=== PATIENT | female | born 1965 | race Caucasian/White ===

== ENCOUNTER 2022-04-18 10:39 | Inpatient (IN) | payer OTHER, SELFPAY ==
--- NOTE | ~2022-04-18 | CT_ITS ---
EXAMINATION: CT head/brain wo IV con CLINICAL INFORMATION: Reason for Exam AMS COMPARISON: None. TECHNIQUE: Contiguous axial imaging was performed from the skull base to vertex without intravenous contrast. Sagittal and coronal reformatted images were obtained. This CT examination was performed using dose optimization techniques as appropriate, variously including the following: * Automated exposure control * Adjustment of mA and/or kV according to patient size (this includes techniques or standardized protocols for targeted exams where dose is matched to indication/reason for exam; i.e. extremities or head) Use of iterative reconstruction technique DLP: 607 mGy-cm FINDINGS: No acute osseous or soft tissue abnormality. The mastoid air cells and visualized portions of the paranasal sinuses are well aerated. There is no evidence of acute intracranial hemorrhage or territorial infarction. No abnormal mass effect or midline shift is seen. Sexton to white matter differentiation is well preserved. No extra-axial fluid collections are identified. No hydrocephalus. Proportional prominence of the ventricles and sulcal spaces is consistent with mild volume loss. CT/CT head/brain wo IV con IMPRESSION: 1. No acute intracranial abnormality.
[2022-04-18 10:58] VITALS: BP 160/113; PULSE 131; RESP 20; TEMP 36.5; O2SAT 96; BMI 28.3
--- OUTSIDE RECORDS SUMMARY | 2022-04-18 11:17 | XMS_ITS | Continuity of Care Document ---
:1965 Author Organization [facility] Address [address] [place] [address]- Care Team Providers Name Role Phone Not on Staff, PCP Primary Care Physician Unavailable Encounter [facility] [place] Date(s): 03/07/21 - 03/09/[address] [address] Encounter Diagnosis Vaginal bleeding (Final) - 03/06/21 Discharge Disposition: A-D/C Home Attending Physician: Rosalina Beach MD Admitting Physician: Rosalina Beach MD Referring Physician: Not on Staff, Referring MD Allergies, Adverse Reactions, Alerts Substance Reaction Severity Status NKA Active Medications docusate-senna 50 mg-187 mg oral tablet 1 tablet, By Mouth, Daily at bedtime, PRN Constipation, # 30 tablet, 0 Refills, Maintenance, 03/09/21 6:35:00 EST, Tablet, [facility] #[id number], Partial fill upon patient request if the prescription is for a schedule II opioid drug., 1 tablet B... Start Date: 03/09/21 Status: Orderedferrous sulfate 325 mg oral tablet 1 tablet = 325 mg, By Mouth, Daily, # 90 tablet, 0 Refills, Maintenance, 03/09/21 6:35:00 EST, Tablet, [facility] #[id number], Partial fill upon patient request if the prescription is for a schedule II opioid drug., 155, cm, 03/09/21 5:57:00 EST,... Start Date: 03/09/21 Status: Orderedibuprofen 600 mg oral tablet 600 mg, 1, tablet, By Mouth, Every 6 hours, # 50 tablet, Refills 0, Tot. Refills 0, Maintenance, 03/09/21 6:35:00 EST, Route to Pharmacy Electronically, [facility] #[id number], Partial fill upon patient request if the prescription is for a schedu... Start Date: 03/09/21 Status: OrderedMiraLax oral powder for reconstitution = 17 Gm, By Mouth, Daily, PRN Constipation, dissolve in water before taking, # 255 Gm, 0 Refills, Acute 03/23/21 0:00:00 EST, 03/09/21 6:36:00 EST, REC Powder, [facility] #[id number], Partial fillupon patient request if the prescription is for a... Start Date: 03/09/21 Stop Date: 03/23/21 Status: OrderedoxyCODONE 5 mg oral tablet 5 mg, 1, tablet, By Mouth, Every 6 hours, PRN, # 18 tablet, Refills 0, Tot. Refills 0, Acute 03/23/21 0:00:00 EST, for pain, 03/09/21 6:35:00 EST, Route to Pharmacy Electronically, [facility]#[id number], Partial fill upon patient request, 155, c... Start Date: 03/09/21 Stop Date: 03/23/21 Status: OrderedTylenol 325 mg oral capsule 2 capsule = 650 mg, By Mouth, Every 4 hours, PRN as needed for pain, # 50 capsule, 0 Refills, Maintenance, 03/09/21 6:35:00 EST, Capsule, [facility] #[id number], Partial fill upon patient request if the prescription is for a schedule II opioid Start Date: 03/09/21 Status: Ordered Problem List Condition Effective Dates Status Health Status Informant Heart murmur(Confirmed) Active Menorrhagia(Confirmed) Active Results Radiology Reports Exam Date Time Procedure Performing Provider Status 03/07/21 12:46 PM Abdomen AP Satish Simmons; Auth (Verifie d) Notes:(Abdomen AP) Reason For Exam: Counts: Sponges/Sharps/Instruments Protocol RESULT: XR Abdomen AP XR Abdomen AP 1 view INDICATION/CLINICAL QUESTION: Reason: Counts: Sponges Sharps Instruments Protocol; Special Instructions: looking for retractor COMPARISON: None FINDINGS: A good portion of the upper abdomen is not included on the examination. Normal bowel gas pattern. No evidence of obstruction. Multiple skin clips midline in location throughout the lower abdomen and pelvis. Scattered soft tissue emphysema in the lower pelvis due to recent surgery. No radiopaque instruments are noted in the visualized portion of the midabdomen and pelvis. No acute bone findings. A wet [place] [id number] on 03/07/2021 at 1:10 PM. IMPRESSION: As above. WSN: [id number] Ordering Physician: Rosalina Beach Dictated By: John Franco MD, V Dictated Date/Time: 03/07/21 1:19 pm Reviewed By: John Franco MD, V Signed By: John Franco MD, V Signed Date/Time: 03/07/21 1:19 pm Transcribed By: MOLLY Transcribed Date/Time: 03/07/21 1:16 pm Vital Signs Most recent to oldest 1 2 3 [Reference Range]: Height 155 cm 155 cm 155 cm (03/09/21 8:53 AM) (03/09/21 5:57 AM) (03/09/21 12:41 AM) Weight 68.75 kg 68.5 kg (03/09/21 5:57 AM) (03/07/21 9:41 AM) Oxygen Saturation [94-100 97 % 93 % 94 % %] (03/09/21 8:53 AM) *L* (03/09/21 12: 41 AM) (03/09/21 5:57 AM) Pulse Rate [55-90 bpm] 102 bpm 62 bpm 86 bpm *H* (03/09/21 5:57 AM) (03/09/21 12: 41 AM) (03/09/21 8:53 AM) Blood Pressure 140/76 mm Hg 131/60 mm Hg 132/66 mm Hg [90-138/55-84 mm Hg] *H* (03/09/21 5:57 AM) ( 1 12:41 AM) (03/09/21 8:53 AM) Respiratory Rate [16-30 18 br/min 16 br/min 20 br/mi n br/min] (03/09/21 8:53 AM) (03/09/21 5:57 AM) (03/09/21 12:41 AM) Temperature [96.8-100.4 98.3 DegF 98.2 DegF 99.7 Deg F DegF] (03/09/21 8:53 AM) (03/09/21 5:57 AM) (03/09/21 12:41 AM) Mode of Delivery (Oxygen) Room air Room air Room a ir (03/09/21 8:53 AM) (03/09/21 5:57 AM) (03/09/21 12:41 AM) Blood pressure sites Arm, left Arm, right Arm, right (03/09/21 8:53 AM) (03/09/21 5:57 AM) (03/09/21 12:41 AM) Temperature Route Oral Oral Oral (03/09/21 8:53 AM) (03/09/21 5:57 AM) (03/09/21 12:41 AM) Dry Weight 69 kg (03/07/21 9:41 AM) Weight Obtained Via Standing scale Patient/family stated (03/09/21 5:57 AM) (03/07/21 9:41 AM) Dry Weight Obtained Via Patient/family stated (03/07/21 9:41 AM) Social History Social History Type Response Smoking Status Never (less than 100 in life time) entered on: 03/07/21 Sex
--- OUTSIDE RECORDS SUMMARY | 2022-04-18 11:17 | XMS_ITS | Continuity of Care Document ---
:1965 Author Organization [facility] [place] Address [address], [address] [place] [address]- Care Team Providers Name Role Phone Rosalina Beach MD Primary Care Physician Encounter 08/07/21 - 08/14/21 [facility] [address], [address] [place] [address]- Attending Physician: Rosalina Beach MD Admitting Physician: Rosalina Beach MD Referring Physician: Rosalina Beach MD Allergies, Adverse Reactions, Alerts No Known Allergies Immunizations Given and Recorded Vaccine Date Status Refusal Reason SARS-CoV-2 (COVID-19) mRNA BNT-162b2 vac 02/26/21 Recorde d SARS-CoV-2 (COVID-19) mRNA BNT-162b2 vac 08/02/20 Recorde d SARS-CoV-2 (COVID-19) mRNA BNT-162b2 vac 07/12/20 Recorde d Medications ferrous sulfate 325 mg oral tablet 1 tablet = 325 mg, By Mouth, Daily, # 90 tablet, 0 Refills, Maintenance, 03/09/21 6:35:00 EST, Tablet, [facility] #[id number], Partial fill upon patient request if the prescription is for a schedule II opioid drug., 155, cm, 03/09/21 5:57:00 EST,... Start Date: 03/09/21 Status: Orderedibuprofen 600 mg oral tablet 600 mg, 1, tablet, By Mouth, Every 6 hours, # 50 tablet, Refills 0, Tot. Refills 0, Maintenance, 03/09/21 6:35:00 EST, Route to Pharmacy Electronically, [facility] #[id number], Partial fill upon patient request if the prescription is for a schedu... 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
--- OUTSIDE RECORDS SUMMARY | 2022-04-18 11:17 | XMS_ITS | Continuity of Care Document ---
:1965 Author Organization [facility] Address [address] [place] [address]- Care Team Providers Name Role Phone Not on Staff, PCP Primary Care Physician Unavailable [place] [facility] 04/08/21 [facility] [address] [place] [address]- Allergies, Adverse Reactions, Alerts No Known Allergies [...] 0 Refills, Maintenance, 03/09/21 6:35:00 EST, Tablet, [facility] #[id number], Partial fill upon patient request if the prescription is for a schedule II opioid drug., 155, cm, 03/09/21 5:57:00 EST,... Start Date: 03/09/21 Status: Orderedibuprofen 600 mg oral tablet 600 mg, 1, tablet, By Mouth, Every 6 hours, # 50 tablet, Refills 0, Tot. Refills 0, Maintenance, 03/09/21 6:35:00 EST, Route to Pharmacy Electronically, [facility] #[id number], Partial fill upon patient request if the prescription is for a schedu... 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
--- OUTSIDE RECORDS SUMMARY | 2022-04-18 11:17 | XMS_ITS | Continuity of Care Document ---
:1965 Author Organization [facility] Address [address] [place] [address]- Care Team Providers Name Role Phone Not on Staff, PCP Primary Care Physician Unavailable Encounter [facility] [place] Date(s): 03/15/21 - 04/14/21 [facility] [address] [place] [address]- Attending Physician: Sarah Camejo Admitting Physician: Sarah Camejo Referring Physician: Sarah Camejo Allergies, Adverse Reactions, Alerts No Known Allergies [...] 0 Refills, Maintenance, 03/09/21 6:35:00 EST, Tablet, [facility] #[id number], Partial fill upon patient request if the prescription is for a schedule II opioid drug., 155, cm, 03/09/21 5:57:00 EST,... Start Date: 03/09/21 Status: Orderedibuprofen 600 mg oral tablet 600 mg, 1, tablet, By Mouth, Every 6 hours, # 50 tablet, Refills 0, Tot. Refills 0, Maintenance, 03/09/21 6:35:00 EST, Route to Pharmacy Electronically, [facility] #[id number], Partial fill upon patient request if the [...]
--- OUTSIDE RECORDS SUMMARY | 2022-04-18 11:17 | XMS_ITS | Continuity of Care Document ---
:1965 Author Organization [facility] Address [address] [place] [address]- Care Team Providers Name Role Phone Not on Staff, PCP Primary Care Physician Unavailable Encounter [facility] [place] Date(s): 03/05/21 - 04/04/21 [facility] [address] [place] [address]- Allergies, Adverse Reactions, Alerts Substance Reaction Severity Status NKA Active Immunizations Given and Recorded Vaccine Date Status Refusal Reason SARS-CoV-2 (COVID-19) mRNA BNT-162b2 vac 02/26/21 Recorde d SARS-CoV-2 (COVID-19) mRNA BNT-162b2 vac 08/02/20 Recorde d SARS-CoV-2 (COVID-19) mRNA BNT-162b2 vac 07/12/20 Recorde d Medications ferrous sulfate 325 mg oral tablet 1 tablet = 325 mg, By Mouth, Daily, # 90 tablet, 0 Refills, Maintenance, 03/09/21 6:35:00 EST, Tablet, [facility] #[id number], Partial fill upon patient request if the prescription is for a schedule II opioid drug., 155, cm, 03/09/21 5:57:00 EST,... Start Date: 03/09/21 Status: Orderedibuprofen 600 mg oral tablet 600 mg, 1, tablet, By Mouth, Every 6 hours, # 50 tablet, Refills 0, Tot. Refills 0, Maintenance, 03/09/21 6:35:00 EST, Route to Pharmacy Electronically, [facility] #[id number], Partial fill upon patient request if the [...]
--- OUTSIDE RECORDS SUMMARY | 2022-04-18 11:17 | XMS_ITS | Continuity of Care Document ---
:1965 Author Organization [facility] Address [address] [place] [address]- Care Team Providers Name Role Phone Not on Staff, PCP Primary Care Physician Unavailable [place] [facility] [place]): 03/05/21 - 04/07/21 [facility] [address] [place], [place] [address] Attending Physician: Molly Costello MD Admitting Physician: Molly Costello MD Referring Physician: Angeline Tamez MD Allergies, Adverse Reactions, Alerts No Known [...] 0 Refills, Maintenance, 03/09/21 6:35:00 EST, Tablet, [facility] #[id number], Partial fill upon patient request if the prescription is for a schedule II opioid drug., 155, cm, 03/09/21 5:57:00 EST,... Start Date: 03/09/21 Status: Orderedibuprofen 600 mg oral tablet 600 mg, 1, tablet, By Mouth, Every 6 hours, # 50 tablet, Refills 0, Tot. Refills 0, Maintenance, 03/09/21 6:35:00 EST, Route to Pharmacy Electronically, [facility] #[id number], Partial fill upon patient request if the [...]
--- OUTSIDE RECORDS SUMMARY | 2022-04-18 11:17 | XMS_ITS | Continuity of Care Document ---
:1965 Author Organization [facility] Address [address] [place] [address]- Care Team Providers Name Role Phone Not on Staff, PCP Primary Care Physician Unavailable [place] [facility] [place] 06[place]/21 [facility] [address] [place], [place] [address] Allergies, Adverse Reactions, Alerts No Known Allergies [...] 0 Refills, Maintenance, 03/09/21 6:35:00 EST, Tablet, [facility] #[id number], Partial fill upon patient request if the prescription is for a schedule II opioid drug., 155, cm, 03/09/21 5:57:00 EST,... Start Date: 03/09/21 Status: Orderedibuprofen 600 mg oral tablet 600 mg, 1, tablet, By Mouth, Every 6 hours, # 50 tablet, Refills 0, Tot. Refills 0, Maintenance, 03/09/21 6:35:00 EST, Route to Pharmacy Electronically, [facility] #[id number], Partial fill upon patient request if the [...]
--- OUTSIDE RECORDS SUMMARY | 2022-04-18 11:17 | XMS_ITS | Continuity of Care Document ---
:1965 Author Organization [facility] [place] [address], [address] [place] [address]- Care Team Providers Name Role Phone Not on Staff, PCP Primary Care Physician Unavailable Encounter 06/04/21 - 06/11/21 [facility] [address], [address] [place] [address]- Attending Physician: Rosalina Beach MD Admitting Physician: [...] 0 Refills, Maintenance, 03/09/21 6:35:00 EST, Tablet, [facility] #[id number], Partial fill upon patient request if the prescription is for a schedule II opioid drug., 155, cm, 03/09/21 5:57:00 EST,... Start Date: 03/09/21 Status: Orderedibuprofen 600 mg oral tablet 600 mg, 1, tablet, By Mouth, Every 6 hours, # 50 tablet, Refills 0, Tot. Refills 0, Maintenance, 03/09/21 6:35:00 EST, Route to Pharmacy Electronically, [facility] #[id number], Partial fill upon patient request if the [...]
[2022-04-18 11:28] LABS: Appearance Urine Clear; Color Urine Yellow; Glucose Urine UA Negative (Negative); Leukocyte Esterase Urine Small (1+) (Negative); Nitrite Urine Negative (Negative); PH 6.5 (5.0-9.0); Specific Gravity - Urine <= 1.005 (1.005-1.025); UMIC TRIGGER UACC YES; Urine Blood Small (1+) (Negative); Urine Ketones Negative (Negative); Urine Protein Negative (Neg-Trace)
[2022-04-18 11:36] LABS: Amphetamine Screen Urine Not Detected (Not Detect); Bacteria Urine None Seen (None Seen); Barbiturates, Urine Not Detected (Not Detect); Benzodiazepines Screen Urine Not Detected (Not Detect); Cannabinoid Screen Urine Not Detected (Not Detect); Cocaine Screen Urine Not Detected (Not Detect); Fentanyl, urine Not Detected (Not Detect); Hyaline Casts Urine 0-2 /LPF (0-2); Opiate Screen Urine Not Detected (Not Detect); Phencyclidine Screen Urine Not Detected (Not Detect); RBC Urine 0-2 /HPF (0-2); Squamous Epithelial Cell Urine 0-2 /HPF (0-2); UACC Culture Trigger YES; WBC Urine 0-5 /HPF (0-5)
[2022-04-18 11:40] LABS: COVID-19 Test Negative (Negative); IDNOW Serial# 16C4AD1C
--- NOTE | 2022-04-18 11:40 | ED_ITS ---
HPI - Psych General Chief Complaint: Psychiatric Symptoms <BLANCA Johnson - Last Filed: 04/18/22 17:15> Stated Complaint: crisis <BLANCA Johnson - Last Filed: 04/18/22 17:15> Time Seen by Provider: 04/18/22 11:40 <BLANCA Johnson - Last Filed: 04/18/22 17:15> Source: patient <BLANCA Johnson - Last Filed: 04/18/22 17:15> Mode of arrival: ambulatory <BLANCA Johnson - Last Filed: 04/18/22 17:15> Limitations: no limitations <BLANCA Johnson Last Filed: 04/18/22 17:15> History of Present Illness HPI Narrative: 56-year-old female with history of situational depression but no treated psychiatric or medical illnesses presents to the ER for evaluation of paranoia, anxiety and panic attacks. She states her partner recently broke up with her on Friday because she was acting paranoid and accusing her of cheating on her. Ov er the weekend she was having increased anxiety, panic attacks, not sleeping well. Her friend brought her to the ER today because she thought she was having a ?nervous breakdown. ? Patient reports being paranoid and thinking ?people are out to get her. ? she denies any visual or auditory hallucinations. She states she is very depressed. She stated friend house last night who told her she was up all night crying. She would not get up and pace in the middle the night, has vague recollection of this. She denies any drugs or alcohol. 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 She denies SI or HI. <BLANCA Johnson - Last Filed: 04/18/22 17:15> MD complaint: feels depressed and anxiety <BLANCA Johnson - Last Filed: 04/18/22 17:15> Onset (ago): day(s) <BLANCA Johnson - Last Filed: 04/18/22 17:15> Duration: getting worse <BLANCA Johnson - Last Filed: 04/18/22 17:15> History of same: No <BLANCA Johnson - Last Filed: 04/18/22 17:15> Relieving factors: none <BLANCA Johnson - Last Filed: 04/18/22 17:15> Exacerbating factors: none <BLANCA Johnson - Last Filed: 04/18/22 17:15> Context: significant life stressor <BLANCA Johnson - Last Filed: 04/18/22 17:15> Associated psychiatric symptoms: depression and racing thoughts <BLANCA Johnson - Last Filed: 17:15> Associated symptoms: confusion and insomnia <BLANCA Johnson - Last Filed: 04/18/22 17:15> Treatments prior to arrival: none <BLANCA Johnson Last Filed: 04/18/22 17:15> Related Data Home Medications: Home Medications Medication Instructions Recorded Confirmed No Known Home Meds 04/18/22 04/18/22 <BLANCA Johnson - Last Filed: 04/18/22 17:15> Allergies/Adverse Reactions: Allergies Allergy/AdvReac Type Severity Reaction Status Date / Time No Known Allergies Allergy Verified 04/18/22 11:10 <BLANCA Johnson Last Filed: 04/18/22 17:15> Review of Systems Review of Systems: Yes all other systems are reviewed and are negative <BLANCA Johnson Last Filed: 04/18/22 17:15> [facility] Social History Social History: Social History Alcohol intake: current Alcohol intake frequency: a few times a week Smoked in Last 30 Days: No Use of substances other than those prescribed or required for medical reasons: No Advance Directives: No Advance Directives Information Provided: Yes Patient : No <BLANCA Johnson - Last Filed: 04/18/22 17:15> Physical Exam Vital Signs: Vital Signs: Last Vital Signs Temp 97.9 F 04/19/22 05:17 Pulse 104 H 04/19/22 05:17 Resp 18 04/19/22 05:17 BP 140/84 H 04/19/22 05:17 Pulse Ox 95 04/19/22 05:17 O2 Del Method 04/19/22 05:17 BMI result Body Mass Index 28.3 <BLANCA Johnson - Last Filed: 04/18/22 17:15> Vital Signs: Last Vital Signs Temp 97.9 F 04/19/22 05:17 Pulse 104 H 04/19/22 05:17 Resp 18 04/19/22 05:17 BP 140/84 H 04/19/22 05:17 Pulse Ox 95 04/19/22 05:17 O2 Del Method 04/19/22 05:17 BMI result Body Mass Index 28.3 <Dilcia Ling MD - Last Filed: 04/19/22 06:40> Appearance: Alert. Oriented X3. No acute distress. Eyes: Pupils equal, round and reactive to light. ENT: Pharynx normal. Neck: Normal inspection. Neck supple. CVS: Normal heart rate and rhythm. Pulses normal. Respiratory: No respiratory distress. Breath sounds normal. Abdomen: Soft and nontender. +BS x4 Skin: Skin warm and dry. Normal skin color. Normal skin turgor. No rashes. Extremities: No lower extremity edema. Neuro/psych: Oriented X 3. No motor deficit. No sensory deficit. CN II-XII intact. Normal speech and cognition. Good insight. Depressed mood <BLANCA Johnson - Last Filed: 04/18/22 17:15> Course Course Course Narrative: 56-year-old female presents to the ER for evaluation of a ?nervous breakdown. ? she reports history of situational anxiety and depression but never has been treated with any medications, she does not have a therapist or psychiatrist. She denies any medical problems. She did get hysterectomy a year ago and thinks that some of this may be hormonally related. She is not suicidal or homicidal. Will have a care team evaluate her. <BLANCA Johnson - Last Filed: 04/18/22 17:15> Reevaluation(s) Reevaluation #1: Patient behavior has been escalating. She was exhibiting more odd behav iors, hollering out and thrashing. Difficult to tell if she is responding to internal stimuli or just talking to herself. She was given dose of Seroquel and Ativan with minimal relief. Psychiatry was contacted, medication recommendations have been made, additional labs have been ordered to well as a CT scan of her head. Thi is all acute presentation with no significant psychaitric history <BLANCA Johnson - Last Filed: 04/18/22 17:15> Reevaluation #2: Continue physician observation, patient with new onset psychosis and will undergo psychiatric consult today and at that time care team will evaluate and make recommendations for disposition. No acute events overnight. <Dilcia Ling MD - Last Filed: 04/19/22 06:40> Time: 06:39 <Dilcia Ling MD - Last Filed: 04/19/22 06:40> Consultations Consultation #1: Psych - [facility] [employer] <BLANCA Johnson - Last Filed: 04/18/22 17:15> Medications Administered Generic Name Dose Route Start Last Admin Trade Name Freq PRN Reason Stop Dose Admin Olanzapine 10 mg 04/18/22 15:45 04/19/22 05:30 Olanzapine Odt 10 Mg Tab.Rapdis TRANSLINGU 10 mg Q6H PRN Administration agitation Discontinued Medications Generic Name Dose Route Start Last Admin Trade Name Freq PRN Reason Stop Dose Admin Hydroxyzine HCl 50 mg 04/18/22 12:57 04/18/22 13:05 Hydroxyzine Hcl 50 Mg Tablet PO 04/18/22 12:58 50 mg ONCE ONE Administration Lorazepam 1 mg 04/18/22 13:52 04/18/22 14:02 Lorazepam 1 Mg Tablet PO 04/18/22 13:53 1 mg ONCE ONE Administration Lorazepam 1 mg 04/18/22 15:13 04/18/22 17:25 Lorazepam 1 Mg Tablet PO 04/18/22 15:14 Not Given ONCE ONE Lorazepam 2 mg 04/18/22 15:42 04/18/22 16:05 Lorazepam 1 Mg Tablet PO 04/18/22 15:43 2 mg ONCE ONE Administration Olanzapine 10 mg 04/18/22 15:44 04/18/22 16:05 Olanzapine Odt 10 Mg Tab.Rapdis TRANSLINGU 04/18/22 15:45 10 mg ONCE ONE Administration Quetiapine Fumarate 25 mg 04/18/22 13:52 04/18/22 14:02 Quetiapine Fumarate 25 Mg Tablet PO 04/18/22 13:53 25 mg ONCE ONE Administration Quetiapine Fumarate 25 mg 04/18/22 15:13 04/18/22 17:25 Quetiapine Fumarate 25 Mg Tablet PO 04/18/22 15:14 Not Given ONCE ONE <BLANCA Johnson - Last Filed: 04/18/22 17:15> Medications Administered Generic Name Dose Route Start Last Admin Trade Name Freq PRN Reason Stop Dose Admin Olanzapine 10 mg 04/18/22 15:45 04/19/22 05:30 Olanzapine Odt 10 Mg Tab.Rapdis TRANSLINGU 10 mg Q6H PRN Administration agitation Discontinued Medications Generic Name Dose Route Start Last Admin Trade Name Freq PRN Reason Stop Dose Admin Hydroxyzine HCl 50 mg 04/18/22 12:57 04/18/22 13:05 Hydroxyzine Hcl 50 Mg Tablet PO 04/18/22 12:58 50 mg ONCE ONE Administration Lorazepam 1 mg 04/18/22 13:52 04/18/22 14:02 Lorazepam 1 Mg Tablet PO 04/18/22 13:53 1 mg ONCE ONE Administration Lorazepam 1 mg 04/18/22 15:13 04/18/22 17:25 Lorazepam 1 Mg Tablet PO 04/18/22 15:14 Not Given ONCE ONE Lorazepam 2 mg 04/18/22 15:42 04/18/22 16:05 Lorazepam 1 Mg Tablet PO 04/18/22 15:43 2 mg ONCE ONE Administration Olanzapine 10 mg 04/18/22 15:44 04/18/22 16:05 Olanzapine Odt 10 Mg Tab.Rapdis TRANSLINGU 04/18/22 15:45 10 mg ONCE ONE Administration Quetiapine Fumarate 25 mg 04/18/22 13:52 04/18/22 14:02 Quetiapine Fumarate 25 Mg Tablet PO 04/18/22 13:53 25 mg ONCE ONE Administration Quetiapine Fumarate 25 mg 04/18/22 15:13 04/18/22 17:25 Quetiapine Fumarate 25 Mg Tablet PO 04/18/22 15:14 Not Given ONCE ONE <Dilcia Ling MD - Last Filed: 04/19/22 06:40> Medical Decision Making Differential Diagnosis Differential Diagnoses: The differential diagnosis associated with the presentation includes <BLANCA Johnson - Last Filed: 04/18/22 17:15> Depression, adjustment disorder, anxiety, panic attacks, polysubstance abuse, insomnia, sleep deprivation, acute psychosis <BLANCA Johnson - Last Filed: 04/18/22 17:15> Admission/Observation Consideration of admission/observation: Escalation of care including admission/observation considered <BLANCA Johnson - Last Filed: 04/18/22 17:15> Unstable, will need to keep in the emergency department, most likely will need require admission to the hospital <BLANCA Johnson - Last Filed: 04/18/22 17:15> Consult Healthcare Provider Management of the patient was discussed with: Behavioral Health Provider <BLANCA Johnson - Last Filed: 04/18/22 17:15> Lab Data MDM Lab Attestation statement: I reviewed the patient's lab results. <BLANCA Johnson - Last Filed: 04/18/22 17:15> Unremarkable metabolic workup Urinalysis with only small leukocyte esterase, no other markers for infection. No symptoms. Will hold off on treatment. Unlikely UTI. <BLANCA Johnson - Last Filed: 04/18/22 17:15> Result Diagrams: 04/18/22 15:49 04/18/22 15:49 <BLANCA Johnson - Last Filed: 04/18/22 17:15> Labs: Lab Results 04/18/22 04/18/22 04/18/22 Range/Units 11:19 11:19 11:19 WBC (4.8-10.8) X10*3/uL RBC (4.20-5.50) X10*6/uL Hgb (12.0-16.0) g/dl Hct (37.0-47.0) % MCV (80.0-98.0) fL MCH (27.0-33.0) pg MCHC (31.0-35.0) g/dl RDW (11.0-16.0) % Plt Count (160-400) X10*3/uL MPV (9.4-12.3) fL Immature Gran % (Auto) (0.0-0.4) % Neut % (Auto) (45-73) % Lymph % (Auto) (20-40) % [place] % (Auto) (2-11) % Eos % (Auto) (0-4) % Baso % (Auto) (0-2) % Lymph # (Auto) (1.2-4.9) X10*3/uL [place] # (Auto) (0.1-1.2) X10*3/uL Eos # (Auto) (0.0-0.4) X10*3/uL Baso # (Auto) (0.0-0.2) X10*3/uL Abs Immat Gran (auto) (0.00-0.03) X10*3/uL Absolute Neuts (auto) (2.0-8.3) x10*3/uL Absolute Nucleated RBC (0.0-0.012) X10*3/uL Nucleated RBC % (auto) (0.0-0.2) /100WBC Sodium (135-145) mmol/L Potassium (3.3-5.1) mmol/L Chloride (96-108) mmol/L Carbon Dioxide (22-29) mmol/L Anion Gap (12-20) BUN (9-16) mg/dL Creatinine (0.5-1.4) mg/dL Estim Creat Clear Calc Estimated GFR Random Glucose (60-115) mg/dL Calcium (8.4-10.2) mg/dL Total Bilirubin (0.0-1.0) mg/dL AST (5-31) U/L ALT (0-31) U/L Alkaline Phosphatase (39-117) U/L C-Reactive Protein (< or = 0.50) mg/dL Total Protein (6.5-8.0) g/dL Albumin (3.5-5.0) g/dL TSH (0.32-4.0) uIU/mL Urine Color Yellow Urine Appearance Clear Urine pH 6.5 (5.0-9.0) Ur Specific [place] <= 1.005 (1.005-1.025) Urine Protein Negative (Neg-Trace) mg/dL Urine Glucose (UA) Negative (Negative) mg/dL Urine Ketones Negative (Negative) mg/dL Urine Blood Small (1+) H (Negative) Urine Nitrite Negative (Negative) Ur Leukocyte Esterase Small (1+) H (Negative) Urine RBC 0-2 (0-2) /HPF Urine WBC 0-5 (0-5) /HPF Ur Squamous Epith Cells 0-2 (0-2) /HPF Urine Bacteria None Seen (None Seen) Hyaline Casts 0-2 (0-2) /LPF Urine Opiates Screen Not Detected (Not Detect) Urine Fentanyl Screen Not Detected (Not Detect) Ur Barbiturates Screen Not Detected (Not Detect) Ur Phencyclidine Scrn Not Detected (Not Detect) Ur Amphetamines Screen Not Detected (Not Detect) U Benzodiazepines Scrn Not Detected (Not Detect) Urine Cocaine Screen Not Detected (Not Detect) U Marijuana (THC) Screen Not Detected (Not Detect) Ethyl Alcohol mg/dL COVID-19 (KHADAR) Negative (Negative) COVID-19 Clin Com See Note 04/18/22 04/18/22 04/18/22 Range/Units 15:49 15:49 15:49 WBC 9.4 (4.8-10.8) X10*3/uL RBC 4.76 (4.20-5.50) X10*6/uL Hgb 13.4 (12.0-16.0) g/dl Hct 38.7 (37.0-47.0) % MCV 81.3 (80.0-98.0) fL MCH 28.2 (27.0-33.0) pg MCHC 34.6 (31.0-35.0) g/dl RDW 13.0 (11.0-16.0) % Plt Count 297 (160-400) X10*3/uL MPV 9.0 L (9.4-12.3) fL Immature Gran % (Auto) 0.2 (0.0-0.4) % Neut % (Auto) 68.3 (45-73) % Lymph % (Auto) 23.5 (20-40) % [place] % (Auto) 5.2 (2-11) % Eos % (Auto) 1.8 (0-4) % Baso % (Auto) 1.0 (0-2) % Lymph # (Auto) 2.2 (1.2-4.9) X10*3/uL [place] # (Auto) 0.5 (0.1-1.2) X10*3/uL Eos # (Auto) 0.2 (0.0-0.4) X10*3/uL Baso # (Auto) 0.1 (0.0-0.2) X10*3/uL Abs Immat Gran (auto) 0.02 (0.00-0.03) X10*3/uL Absolute Neuts (auto) 6.4 (2.0-8.3) x10*3/uL Absolute Nucleated RBC 0.000 (0.0-0.012) X10*3/uL Nucleated RBC % (auto) 0.0 (0.0-0.2) /100WBC Sodium 143 (135-145) mmol/L Potassium 3.5 (3.3-5.1) mmol/L Chloride 108 (96-108) mmol/L Carbon Dioxide 25 (22-29) mmol/L Anion Gap 14 (12-20) BUN 10 (9-16) mg/dL Creatinine 0.91 (0.5-1.4) mg/dL Estim Creat Clear Calc 60.2 Estimated GFR > 60 Random Glucose 130 H (60-115) mg/dL Calcium 9.7 (8.4-10.2) mg/dL Total Bilirubin 0.3 (0.0-1.0) mg/dL AST 34 H (5-31) U/L ALT 30 (0-31) U/L Alkaline Phosphatase 101 (39-117) U/L C-Reactive Protein 0.19 (< or = 0.50) mg/dL Total Protein 6.9 (6.5-8.0) g/dL Albumin 4.3 (3.5-5.0) g/dL TSH 0.97 (0.32-4.0) uIU/mL Urine Color Urine Appearance Urine pH (5.0-9.0) Ur Specific [place] (1.005-1.025) Urine Protein (Neg-Trace) mg/dL Urine Glucose (UA) (Negative) mg/dL Urine Ketones (Negative) mg/dL Urine Blood (Negative) Urine Nitrite (Negative) Ur Leukocyte Esterase (Negative) Urine RBC (0-2) /HPF Urine WBC (0-5) /HPF Ur Squamous Epith Cells (0-2) /HPF Urine Bacteria (None Seen) Hyaline Casts (0-2) /LPF Urine Opiates Screen (Not Detect) Urine Fentanyl Screen (Not Detect) Ur Barbiturates Screen (Not Detect) Ur Phencyclidine Scrn (Not Detect) Ur Amphetamines Screen (Not Detect) U Benzodiazepines Scrn (Not Detect) Urine Cocaine Screen (Not Detect) U Marijuana (THC) Screen (Not Detect) Ethyl Alcohol < 10 mg/dL COVID-19 (KHADAR) (Negative) COVID-19 Clin Com <Stephania Renschler, PA - Last Filed: 04/18/22 17:15> Lab Results 04/18/22 04/18/22 04/18/22 Range/Units 11:19 11:19 11:19 WBC (4.8-10.8) X10*3/uL RBC (4.20-5.50) X10*6/uL Hgb (12.0-16.0) g/dl Hct (37.0-47.0) % MCV (80.0-98.0) fL MCH (27.0-33.0) pg MCHC (31.0-35.0) g/dl RDW (11.0-16.0) % Plt Count (160-400) X10*3/uL MPV (9.4-12.3) fL Immature Gran % (Auto) (0.0-0.4) % Neut % (Auto) (45-73) % Lymph % (Auto) (20-40) % [place] % (Auto) (2-11) % Eos % (Auto) (0-4) % Baso % (Auto) (0-2) % Lymph # (Auto) (1.2-4.9) X10*3/uL [place] # (Auto) (0.1-1.2) X10*3/uL Eos # (Auto) (0.0-0.4) X10*3/uL Baso # (Auto) (0.0-0.2) X10*3/uL Abs Immat Gran (auto) (0.00-0.03) X10*3/uL Absolute Neuts (auto) (2.0-8.3) x10*3/uL Absolute Nucleated RBC (0.0-0.012) X10*3/uL Nucleated RBC % (auto) (0.0-0.2) /100WBC Sodium (135-145) mmol/L Potassium (3.3-5.1) mmol/L Chloride (96-108) mmol/L Carbon Dioxide (22-29) mmol/L Anion Gap (12-20) BUN (9-16) mg/dL Creatinine (0.5-1.4) mg/dL Estim Creat Clear Calc Estimated GFR Random Glucose (60-115) mg/dL Calcium (8.4-10.2) mg/dL Total Bilirubin (0.0-1.0) mg/dL AST (5-31) U/L ALT (0-31) U/L Alkaline Phosphatase (39-117) U/L C-Reactive Protein (< or = 0.50) mg/dL Total Protein (6.5-8.0) g/dL Albumin (3.5-5.0) g/dL TSH (0.32-4.0) uIU/mL Urine Color Yellow Urine Appearance Clear Urine pH 6.5 (5.0-9.0) Ur Specific [place] <= 1.005 (1.005-1.025) Urine Protein Negative (Neg-Trace) mg/dL Urine Glucose (UA) Negative (Negative) mg/dL Urine Ketones Negative (Negative) mg/dL Urine Blood Small (1+) H (Negative) Urine Nitrite Negative (Negative) Ur Leukocyte Esterase Small (1+) H (Negative) Urine RBC 0-2 (0-2) /HPF Urine WBC 0-5 (0-5) /HPF Ur Squamous Epith Cells 0-2 (0-2) /HPF Urine Bacteria None Seen (None Seen) Hyaline Casts 0-2 (0-2) /LPF Urine Opiates Screen Not Detected (Not Detect) Urine Fentanyl Screen Not Detected (Not Detect) Ur Barbiturates Screen Not Detected (Not Detect) Ur Phencyclidine Scrn Not Detected (Not Detect) Ur Amphetamines Screen Not Detected (Not Detect) U Benzodiazepines Scrn Not Detected (Not Detect) Urine Cocaine Screen Not Detected (Not Detect) U Marijuana (THC) Screen Not Detected (Not Detect) Ethyl Alcohol mg/dL COVID-19 (KHADAR) Negative (Negative) COVID-19 Clin Com See Note 04/18/22 04/18/22 04/18/22 Range/Units 15:49 15:49 15:49 WBC 9.4 (4.8-10.8) X10*3/uL RBC 4.76 (4.20-5.50) X10*6/uL Hgb 13.4 (12.0-16.0) g/dl Hct 38.7 (37.0-47.0) % MCV 81.3 (80.0-98.0) fL MCH 28.2 (27.0-33.0) pg MCHC 34.6 (31.0-35.0) g/dl RDW 13.0 (11.0-16.0) % Plt Count 297 (160-400) X10*3/uL MPV 9.0 L (9.4-12.3) fL Immature Gran % (Auto) 0.2 (0.0-0.4) % Neut % (Auto) 68.3 (45-73) % Lymph % (Auto) 23.5 (20-40) % [place] % (Auto) 5.2 (2-11) % Eos % (Auto) 1.8 (0-4) % Baso % (Auto) 1.0 (0-2) % Lymph # (Auto) 2.2 (1.2-4.9) X10*3/uL [place] # (Auto) 0.5 (0.1-1.2) X10*3/uL Eos # (Auto) 0.2 (0.0-0.4) X10*3/uL Baso # (Auto) 0.1 (0.0-0.2) X10*3/uL Abs Immat Gran (auto) 0.02 (0.00-0.03) X10*3/uL Absolute Neuts (auto) 6.4 (2.0-8.3) x10*3/uL Absolute Nucleated RBC 0.000 (0.0-0.012) X10*3/uL Nucleated RBC % (auto) 0.0 (0.0-0.2) /100WBC Sodium 143 (135-145) mmol/L Potassium 3.5 (3.3-5.1) mmol/L Chloride 108 (96-108) mmol/L Carbon Dioxide 25 (22-29) mmol/L Anion Gap 14 (12-20) BUN 10 (9-16) mg/dL Creatinine 0.91 (0.5-1.4) mg/dL Estim Creat Clear Calc 60.2 Estimated GFR > 60 Random Glucose 130 H (60-115) mg/dL Calcium 9.7 (8.4-10.2) mg/dL Total Bilirubin 0.3 (0.0-1.0) mg/dL AST 34 H (5-31) U/L ALT 30 (0-31) U/L Alkaline Phosphatase 101 (39-117) U/L C-Reactive Protein 0.19 (< or = 0.50) mg/dL Total Protein 6.9 (6.5-8.0) g/dL Albumin 4.3 (3.5-5.0) g/dL TSH 0.97 (0.32-4.0) uIU/mL Urine Color Urine Appearance Urine pH (5.0-9.0) Ur Specific [place] (1.005-1.025) Urine Protein (Neg-Trace) mg/dL Urine Glucose (UA) (Negative) mg/dL Urine Ketones (Negative) mg/dL Urine Blood (Negative) Urine Nitrite (Negative) Ur Leukocyte Esterase (Negative) Urine RBC (0-2) /HPF Urine WBC (0-5) /HPF Ur Squamous Epith Cells (0-2) /HPF Urine Bacteria (None Seen) Hyaline Casts (0-2) /LPF Urine Opiates Screen (Not Detect) Urine Fentanyl Screen (Not Detect) Ur Barbiturates Screen (Not Detect) Ur Phencyclidine Scrn (Not Detect) Ur Amphetamines Screen (Not Detect) U Benzodiazepines Scrn (Not Detect) Urine Cocaine Screen (Not Detect) U Marijuana (THC) Screen (Not Detect) Ethyl Alcohol < 10 mg/dL COVID-19 (KHADAR) (Negative) COVID-19 Clin Com <Dilcia Ling MD - Last Filed: 04/19/22 06:40> Prescription Management I considered prescription management with: Other <BLANCA Johnson - Last Filed: 04/18/22 17:15> Antipsychotics and benzodiazepines ordered for mood and behaviors. <BLANCA Johnson - Last Filed: 04/18/22 17:15> Critical Care Time Critical Care Time Critical Care Time: No <BLANCA Johnson - Last Filed: 04/18/22 17:15> Discharge Plan Discharge Clinical Impression: Unspecified psychosis <BLANCA Johnson - Last Filed: 04/18/22 17:15> Patient Disposition: Still a Patient <BLANCA Johnson - Last Filed: 04/18/22 17:15> Prescriptions: No Action No Known Home Meds <BLANCA Johnson - Last Filed: 04/18/22 17:15> Referrals: [facility] [Other] PCP [Other] (Follow up with your PCP and discuss being started on a medication ) <BLANCA Johnson - Last Filed: 04/18/22 17:15> Interventions: [place]-Suicide Risk Severity Scale Last Done: 04/19/22 05:11 <BLANCA Johnson - Last Filed: 04/18/22 17:15>
--- NOTE | 2022-04-18 12:11 | PC.NURSE ---
pt currently meeting with CARE team. pt is alert and oriented x4. she rpeorts increased paranoia over the past couple of weeks leading to a break up between her and her partner. pt reports since the split she has now been experiencing severe anxiety and panic attacks. pt reports she has been slapping herself in the face as a way of grounding herself. pt denies SI/HI at this time. Provider aware of abnormal vitals, elevated BP and HR. will re-check
[2022-04-18 12:17] VITALS: BP 146/89; PULSE 69; RESP 16; TEMP 36.8; O2SAT 95
--- NOTE | 2022-04-18 12:39 | PC.NURSE ---
Maria D (friend - home)
[2022-04-18] MEDS: hydrOXYzine HCL 50 MG TABLET PO (13:05)
--- NOTE | 2022-04-18 13:07 | PC.NURSE ---
pt in room by herself, heard saying stop talking to me. ? responding to internal stimuli vs self dialoguing, pt did deny AVH upon arrival but also admitted to poor sleep x1 week. medicated with Atarax per MAY. pt also frequently leaving her room and will wet her hands in the sink outside her room then immediately return to her room, does not appear to have intent with handwashing.
[2022-04-18] MEDS: QUEtiapine Fumarate 25 MG TABLET PO (14:02)
[2022-04-18] MEDS: LORazepam 1 MG TABLET PO (14:02)
--- NOTE | 2022-04-18 14:44 | PC.NURSE ---
pt increasingly becoming erratic, hitting her hands on her mattress repeatedly, screaming out no repeatedly. pt will get up out of bed, walk to the other side of her bed, scream no! then get in bed from that side. pts has moments of rest where she appears to be sleeping, then will suddenly start hitting her hands on the bed again and yelling out. When asked about her behavior pt reported its been a really shitty week .
--- NOTE | 2022-04-18 14:46 | PC.NURSE ---
will hold on lab work at this time until pt is in better behavioral control and not at risk to injure staff from striking out.
--- NOTE | 2022-04-18 15:10 | PC.NURSE ---
when asked about the screaming on a re-attempt pt was very disheveled, did not appear in behavioral control, grabbing her face and head, shaking herself and reported they're nightmares .
--- NOTE | 2022-04-18 15:47 | PM.PSYCN ---
History of Present Illness Date of Service: 04/18/2022 Chief Complaint: crisis Reason for Consult: AMS Discussed with referring provider: Yes Sources of Information: patient interviewed, chart reviewed and crisis/core team assessment reviewed HPI Narrative: Ms. Stanley was brought to [facility] ED due to presenting with AH, delusions, confusion since last Friday. No prior psych Hx- per friend. Recent stressors include breaking up with GF but unclear if this was product of already AMS or prior to. Most labs pending at this point including CBC, CMP, TSH, head CT, CRP. Utox is negative. BAL pending. VS BP 146/89, HR 69. Pt seen in her room. Pt states she is seeing monsters, states, but in my dreams, which RN pointed out she is awake, not sleeping. Pt tells this appeals writer that she feels something not right. However, appears to have difficulty describing what it is. Pt reports she has not slept in days. Pt reports feeling anxious. She reported earlier feeling like someone was following her. She denies substance use. She reports she is not on any medications. She is oriented to place, month, date, and year. Her attention is poor. She then started crying when asked unable to describe. She denies any physical pain. Medical Evaluation Reviewed: Yes Diagnostics Vital Signs (24Hr): Vital Signs - 24 hr 04/18/22 10:58 04/18/22 12:17 Temperature 97.7 F 98.2 F Pulse Rate 131 H 69 Respiratory Rate 20 16 Blood Pressure 160/113 H 146/89 H Pulse Oximetry 96 95 Oxygen Delivery Method Room Air Room Air BMI result Body Mass Index 28.3 Labs Labs: Laboratory Results - last 48 hr 04/18/22 04/18/22 04/18/22 11:19 11:19 11:19 Urine Color Yellow Urine Appearance Clear Urine pH 6.5 Ur Specific [place] <= 1.005 Urine Protein Negative Urine Glucose (UA) Negative Urine Ketones Negative Urine Blood Small (1+) H Urine Nitrite Negative Ur Leukocyte Esterase Small (1+) H Urine RBC 0-2 Urine WBC 0-5 Ur Squamous Epith Cells 0-2 Urine Bacteria None Seen Hyaline Casts 0-2 Urine Opiates Screen Not Detected Urine Fentanyl Screen Not Detected Ur Barbiturates Screen Not Detected Ur Phencyclidine Scrn Not Detected Ur Amphetamines Screen Not Detected U Benzodiazepines Scrn Not Detected Urine Cocaine Screen Not Detected U Marijuana (THC) Screen Not Detected COVID-19 (KHADAR) Negative COVID-19 Clin Com See Note Mental Status Exam Mental Status Exam Narrative: Appearance: wearing hospital gown, restless Behavior: cooperative to some extend but due to poor attention engagement in interview is fair. Psychomotor: intermittent episodes of agitation without clear trigger Speech: mumbles at times, some delayed in response, spontaneous TP: some periods of being able to respond to most questions fairly appropriate but then derailment TC: feeling anxious, talking to herself, some insight that something is wrong with her Mood: anxious Affect: distress, restless SI: denies HI: denies AH/VH: reports AH, when asked content, unable to explain, seeing monsters Delusions: paranoid delusions Insight/judgment: impaired x 2. Memory/cog: alert, oriented to month, date, year, Medications Medications Current Medications Olanzapine (Olanzapine Odt 10 Mg Tab.Rapdis) 10 mg TRANSLINGU Q6H PRN PRN Reason: agitation Allergies Allergies Allergy/AdvReac Type Severity Reaction Status Date / Time No Known Allergies Allergy Verified 04/18/22 11:10 Assessment & Plan Assessment & Plan (1) Unspecified psychosis: Status: Acute Code(s): F29 - Unspecified psychosis not due to a substance or known physiological condition Assessment and Plan: Ms. Stanley is a 56 year-old woman with no prior psych hx brought to [facility] ED with new onset psychosis, confusion and paranoid since last Friday. Information gathered from friend who spoke with care team and confirmed acute onset and fact that pt has no prior hx. PLAN 1. complete medical work up including head ct crp, cbc, cmp, TSH, RPR, HIV, EKG 2. agitation/psychosis management- olanzapine 10mg op q6h, may also give ativan PRN. monitor EKG Qtc, maintain K>4, Mg>2. Total time managing care of this patient today ____ minutes.
[2022-04-18 15:55] LABS: MANUAL DIFF FLAG NO
[2022-04-18 16:00] LABS: Basophils Absolute Auto 0.1 X10*3/uL (0.0-0.2); Eosinophils Absolute Auto 0.2 X10*3/uL (0.0-0.4); Eosinophils Percent Auto 1.8 % (0-4); Hematocrit 38.7 % (37.0-47.0); Hemoglobin 13.4 g/dl (12.0-16.0); Imm Gran Abs Auto 0.02 X10*3/uL (0.00-0.03); Imm Gran Pct Auto 0.2 % (0.0-0.4); Lymphocytes Absolute Auto 2.2 X10*3/uL (1.2-4.9); Lymphocytes Percent Auto 23.5 % (20-40); Mean Corpuscular HGB Conc 34.6 g/dl (31.0-35.0); Mean Corpuscular Hemoglobin 28.2 pg (27.0-33.0); Mean Corpuscular Volume 81.3 fL (80.0-98.0); Monocytes Absolute Auto 0.5 X10*3/uL (0.1-1.2); Monocytes Percent Auto 5.2 % (2-11); Neutrophils Absolute Auto 6.4 x10*3/uL (2.0-8.3); Neutrophils Percent Auto 68.3 % (45-73); Platelet Count 297 X10*3/uL (160-400); Red Blood Count 4.76 X10*6/uL (4.20-5.50); White Blood Count 9.4 X10*3/uL (4.8-10.8)
[2022-04-18] MEDS: OLANZapine ODT 10 MG TAB.RAPDIS TRANSLINGU (16:05)
[2022-04-18] MEDS: LORazepam 1 MG TABLET 2 MG PO (16:05)
[2022-04-18 16:16] LABS: Ethanol < 10 mg/dL
[2022-04-18 16:18] LABS: Alanine Aminotransferase 30 U/L (0-31); Albumin Level 4.3 g/dL (3.5-5.0); Alkaline Phosphatase 101 U/L (39-117); Anion Gap 14 (12-20); Aspartate Amino Transferase 34 U/L (5-31); Bilirubin Total 0.3 mg/dL (0.0-1.0); Blood Urea Nitrogen 10 mg/dL (9-16); Calcium 9.7 mg/dL (8.4-10.2); Carbon Dioxide 25 mmol/L (22-29); Chloride 108 mmol/L (96-108); Creatinine Clr Calc Pharmacy 60.2; Estimated Glomerular Filt Rate > 60; Glucose Random 130 mg/dL (60-115); Potassium 3.5 mmol/L (3.3-5.1); Sodium 143 mmol/L (135-145); Total Protein 6.9 g/dL (6.5-8.0)
[2022-04-18 16:56] LABS: C Reactive Protein 0.19 mg/dL (< or = 0.50)
[2022-04-18 17:12] LABS: TSH reflex Free T4 0.97 uIU/mL (0.32-4.0)
--- NOTE | 2022-04-18 18:19 | PC.NURSE ---
Late entry: At approx 1530 provider Dominga notified pt could use a psychiatric provider to assess and suggest additional medications. Pt was observed to be shrieking periodically in her room, when this RN in to talk to her, she was responding with eyes closed that she was having nightmares, and hearing creatures . 2mg ativan and 10mg SL Zyprexa admin with positive effect. Pt calmed after approximately 40 minutes, room changed to [facility] to reduce stimulation, and pt was able to fall asleep. Pt briefly awoke around [address], appeared very drowsy at this time. Pt able to go to CT and back with no incident. Pt is currently sleeping at this time resp reg and even. NAD.
--- NOTE | 2022-04-19 05:14 | PC.NURSE ---
Patient slept through the night, no distress observed/reported, patient just woke up, compliant with Vital Signs assessment, HR 104, coherent, med rec completed/currently not on any home medication, head CT unremarkable, behavior non concerning at this time, care team disposition pending psych consult, will continue to monitor.
[2022-04-19 05:17] VITALS: BP 140/84; PULSE 104; RESP 18; TEMP 36.6; O2SAT 95
[2022-04-19] MEDS: OLANZapine ODT 10 MG TAB.RAPDIS TRANSLINGU (05:30)
--- NOTE | 2022-04-19 05:34 | PC.NURSE ---
Patient appears restless, HR 104, offered Olanzapine 10 mg Zydis/accepted, pending effect, will continue to monitor.
--- NOTE | 2022-04-19 07:09 | PC.NURSE ---
Pt sleeping at this time, resp reg and even. NAD.
--- NOTE | 2022-04-19 12:03 | ECG_ITS ---
Test Reason : MED CLEARANCE Blood Pressure : / mmHG Vent. Rate : 086 BPM Atrial Rate : 086 BPM P-R Int : 160 ms QRS Dur : 080 ms QT Int : 340 ms P-R-T Axes : 055 011 029 degrees QTc Int : 406 ms Normal sinus rhythm Normal ECG No previous ECGs available Referred By: Dilcia Ling Electronically Signed By:MAVERICK MACARIO
[2022-04-19 15:24] VITALS: BP 141/84; PULSE 95; RESP 17; TEMP 36.4; O2SAT 98
[2022-04-19 16:50] VITALS: BP 154/95; PULSE 103; RESP 14; TEMP 37.2; O2SAT 99
--- NOTE | 2022-04-19 17:03 | PC.NURSE ---
PT is a 56 year old south sudanese speaking female that arrived on this unit at 16:00 via wheelchair from the [facility]. Patient's legal status is conditional voluntary and she was placed on 15 minute safety checks. PT self presented to the [facility] with concerns of paranoia, anxiety and panic attacks following a recent break up with her partner. PT reports severe insomnia since the break up. PT currently denies any AH although it is in her initial assessment. PT has no hx of mental health concerns nor does any of her immediate family. Trauma hx includes severe bullying as a child, no hx of sexual or physical abuse. 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 PT is visibly anxious, intermittently tearful., but cooperative for the admission process. Denies SI/HI, AH/VH. VS stable, respirations even and unlabored. PT states her goal is to start meds to feel better, set up therapy services and to be discharged home. PT refuses the seasonal flu vaccine and is a non smoker. PT oriented to unit, all policies explained, currently feels safe at this time.
[2022-04-20 06:00] VITALS: BP 168/100; PULSE 98; RESP 16; TEMP 36.8; O2SAT 99
[2022-04-20 08:45] LABS: Ammonia 25 umol/L (13-55)
[2022-04-20 08:50] LABS: Cholesterol 174 mg/dL; Estimated Average Glucose 108 mg/dL; HDL Cholesterol 77 mg/dL; Hemoglobin A1c % 5.4 %; LDL Cholesterol Calculated 89 mg/dl; Triglycerides 43 mg/dL
--- NOTE | 2022-04-20 10:45 | PC.NURSE ---
Pt. signed a 3 day notice 04/20, up on Monday 04/24
--- NOTE | 2022-04-20 12:30 | HO.PSYADMNOT ---
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 Patient reports she had a break up which precipitated insomnia and increase in her depression. According to the psychiatry consultation performed in the ED by Dominga Wells APRN: Ms. Stanley was brought to [facility] ED due to presenting with AH, delusions, confusion since last Friday. No prior psych Hx- per friend. Recent stressors include breaking up with GF but unclear if this was product of already AMS or prior to. Most labs pending at this point including CBC, CMP, TSH, head CT, CRP. Utox is negative. BAL pending. VS BP 146/89, HR 69. Pt seen in her room. Pt states she is seeing monsters, states, but in my dreams, which RN pointed out she is awake, not sleeping. Pt tells this film writer that she feels something not right. However, appears to have difficulty describing what it is. Pt reports she has not slept in days. Pt reports feeling anxious. She reported earlier feeling like someone was following her. She denies substance use. She reports she is not on any medications. She is oriented to place, month, date, and year. Her attention is poor. She then started crying when asked unable to describe. She denies any physical pain. Patient reports she believes her actions in the ED were precipitated by her receiving medications that made her act psychotic. She has been calm since arriving on the psychiatric unit and says she was brought to get therapy and wasn't expecting she would be admitted. She says she has a history of being depressed and is an anxious introverted person. She acknowledges she overreacted to her suspicions of her partner cheating on her and I should have been more patient. She reported she thought people were whispering about her and that happened because of sleep deprivation. While in the ED she was acting disorganized. She was pacing, appeared to be talking to herself and responding to internal stimuli, putting her hands in the sink water then returning to her room and slapping the bed before laying in it. Labs and head CT were non-revealing. Today, she appeared calm, she slept last night, she appeared organized, she denied SI or AVH. She reports history of being an introverted person and I overthink things. She reports anxiety especially going to doctors because she worries they may find an illness, specifically cancer, due to her strong family history. She then says and they did find it when I went . (patient had a hysterectomy after being diagnosed with uterine cancer.) Reports depressed mood, guilt, insomnia, denies SI. (In the crisis report per her friend she was saying she wishes she weren't around after the break up.) Denies manic episodes in the past. She is agreeable to a trial of an antidepressant. Past Psychiatric History: Denies any treatment or inpatient hospitalizations. Medical Evaluation Reviewed: Yes PMFSH Narrative: Uterine cancer s/p hysterectomy Family History: Strong family history of cancer multiple family members. Brother: possible alcoholism. Sister: Eating disorder Social History: Single. Never . No children. 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 Lives with pets. Grew up in [place]. Longest relationship was 8 years ended in 2001. Substance History: None Trauma History: Trauma of being severely bullied in school. Denies other trauma. Diagnostics Vital Signs (24Hr): Vital Signs - 24 hr 04/20/22 06:00 Temperature 98.2 F Pulse Rate 98 Respiratory Rate 16 Blood Pressure 168/100 H Pulse Oximetry 99 Oxygen Delivery Method Room Air BMI result Body Mass Index 28.3 Labs 04/18/22 15:49 04/18/22 15:49 Labs: Laboratory Results - last 48 hr 04/20/22 04/20/22 04/20/22 08:04 08:04 08:26 Estimat Average Glucose 108 Hemoglobin A1c % 5.4 Ammonia 25 Triglycerides 43 Cholesterol 174 LDL Cholesterol, Calc 89 HDL Cholesterol 77 Imaging Radiology Impressions: ITS Impressions Head CT 04/18/22 17:56 IMPRESSION: 1. No acute intracranial abnormality. Meds/Allergies Meds Home Medications Medication Instructions Recorded Confirmed Type No Known Home Meds 04/18/22 04/18/22 History Allergies Allergies Allergy/AdvReac Type Severity Reaction Status Date / Time No Known Allergies Allergy Verified 04/18/22 11:10 Mental Status Exam Mental Status Exam Patient Appearance: Appropriate Patient Orientation: Person, Place, Time and Situation Level of Consciousness: Awake and Appropriate Patient Behavior: Appropriate, Timid, Anxious and Good Eye Contact Mood Description: Constricted, Depressed, Anxious, Sad and Nervous Affect Description: Anxious, Sad and Nervous Patient Cognition Impaired: No Ability to Follow Directions: Excellent Speech Pattern: Clear, Spontaneous Speech and Coherent Memory Description: Intact and Normal for Patient Hallucinations: None Delusions: Paranoid Ideation Thought Process: Intact Thought Content: positive for Intact Depressive Symptoms: Increased Anxiety, Insomnia, Difficulty Sleeping, Loss of Int. 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 Patient reports she had a break up which precipitated insomnia and increase in her depression. She may have had an acute brief psychotic episode following the break up. Based on her presentation today more likely is an adjustment disorder with depression and anxiety, precipitating acute insomnia with behavioral disturbances. May have had a delirious side effect due to seroquel/ativan. She admits to chronic anxiety and introversion and agrees to a trial of an antidepressant. Plan - Admit to for monitoring of symptoms, diagnostic clarification and stabilization. - Encourage milieu and group therapy - Start Lexapro 5 mg daily - Collaterals. - Disposition planning. - PHP could be an option depending on symptom stability and response to Lexapro. Patient educated on: diagnosis and medication risk/benefits Reason for continued inpatient stay Substantial Risk for: inability to function and rapid decompensation Statement Statement: I have reviewed the history and physical and performed a pertinent examination on my patient. No changes have occurred unless specified. If the History and Physical was not performed prior to admission, the Hospitalist's service will be consulted for completing the admission physical. Time Spent With Patient Time: Total time managing care of this patient today ____ minutes.
[2022-04-20 18:00] VITALS: BP 158/83; PULSE 103; TEMP 36.8; O2SAT 98
[2022-04-21 08:00] VITALS: BP 158/84; PULSE 82; RESP 16; TEMP 36.8; O2SAT 99
--- NOTE | 2022-04-21 14:40 | P.PNPSI_ITS ---
Subjective Subjective Date of Service: 04/21/22 Reason For Visit: psychotic symptons Interim History: Patient seen and discussed. Patient was somewhat more irritable and less agreeable than yesterday. Patient continues to deny paranoia or perceptual disturbances. Says she wasn't paranoid regarding her partner cheating on her but rather suspicious Patient refused Lexapro as we had discussed yesterday and she agreed to take it. She says I can't have my mind altered. I would like to get therapy and no medications. Patient was educated regarding effects and side effects of AD medicaitons. She continues to refuse. 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 Psychomotor: intermittent episodes of agitation without clear trigger Speech: mumbles at times, some delayed in response, spontaneous TP: some periods of being able to respond to most questions fairly appropriate but then derailment TC: feeling anxious, talking to herself, some insight that something is wrong with her Mood: anxious Affect: distress, restless, irritable SI: denies HI: denies AH/VH: reports AH, when asked content, unable to explain, seeing monsters Delusions: paranoid delusions Insight/judgment: impaired x 2. Memory/cog: alert, oriented to month, date, year, Patient Appearance: Appropriate Patient Orientation: Person, Place, Time and Situation Level of Consciousness: Awake and Appropriate Patient Behavior: Appropriate, Timid, Anxious and Good Eye Contact Mood Description: Constricted, Depressed, Anxious, Sad and Nervous Affect Description: Anxious, Sad and Nervous Patient Cognition Impaired: No Ability to Follow Directions: Excellent Speech Pattern: Clear, Spontaneous Speech and Coherent Memory Description: Intact and Normal for Patient Diagnostics Vital Signs (24Hr): Vital Signs - 24 hr 04/21/22 08:00 04/21/22 18:00 Temperature 98.2 F 97.2 F Pulse Rate 82 95 Respiratory Rate 16 Blood Pressure 158/84 H 145/85 H Pulse Oximetry 99 100 Oxygen Delivery Method Room Air Room Air BMI result Body Mass Index 28.3 Labs 04/18/22 15:49 04/18/22 15:49 Labs: Laboratory Results - last 48 hr 04/20/22 04/20/22 04/20/22 08:04 08:04 08:26 Estimat Average Glucose 108 Hemoglobin A1c % 5.4 Ammonia 25 Triglycerides 43 Cholesterol 174 LDL Cholesterol, Calc 89 HDL Cholesterol 77 Imaging Radiology Impressions: ITS Impressions Head CT 04/18/22 17:56 IMPRESSION: 1. No acute intracranial abnormality. Medications Medications Current Medications Acetaminophen (Acetaminophen 325 Mg Tablet) 650 mg PO Q6H PRN PRN Reason: Headache/Pain Mild Scale (1-3) Al Hydroxide/Mg Hydroxide (Magnesium Hydrox/Alum Hydrox 30 Ml Oral.Susp) 30 ml PO Q6H PRN PRN Reason: Heartburn/Nausea Hydroxyzine HCl (Hydroxyzine Hcl 25 Mg Tablet) 25 mg PO Q6H PRN PRN Reason: Anxiety Lorazepam (Lorazepam 1 Mg Tablet) 1 mg PO Q4H PRN PRN Reason: agitation Magnesium Hydroxide (Milk Of Magnesia 30 Ml Oral.Susp) 30 ml PO DAILY PRN PRN Reason: Constipation Nicotine Polacrilex (Nicotine Polacrilex 2 Mg Gum) 4 mg BUCCAL Q2H PRN PRN Reason: Nicotine Cravings Olanzapine (Olanzapine Odt 10 Mg Tab.Rapdis) 10 mg TRANSLINGU Q6H PRN PRN Reason: agitation Last Admin: 04/19/22 05:30 Dose: 10 mg Trazodone HCl (Trazodone Hcl 50 Mg Tablet) 50 mg PO BEDTIME PRN PRN Reason: Insomnia Allergies Allergies Allergy/AdvReac Type Severity Reaction Status Date / Time No Known Allergies Allergy Verified 04/18/22 11:10 Assessment & Plan Assessment & Plan (1) Adjustment disorder with mixed anxiety and depressed mood: Status: Acute Code(s): F43.23 - Adjustment disorder with mixed anxiety and depressed mood (2) Generalized anxiety disorder: Status: Acute Code(s): F41.1 - Generalized anxiety disorder (3) Depression, unspecified: Status: Acute Code(s): F32.A - Depression, unspecified Assessment and Plan: This is reportedly the first psychiatric admission for this 56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 Patient reports she had a break up which precipitated insomnia and increase in her depression. She may have had an acute brief psychotic episode following the break up. Based on her presentation today more likely is an adjustment disorder with depression and anxiety, precipitating acute insomnia with behavioral disturbances. May have had a delirious side effect due to seroquel/ativan. She admits to chronic anxiety and introversion and agrees to a trial of an antid epressant. Plan - Admit to for monitoring of symptoms, diagnostic clarification and stabilization. - Encourage milieu and group therapy - Start Lexapro 5 mg daily - Collaterals. - Disposition planning. - PHP could be an option depending on symptom stability and response to Lexapro. 04/21: More irritable today. Refused Lexapro. Continue tx planning. Refuses PHP as an option. Reason for contiued inpatient stay Substantial Risk for: harm to self and inability to function Time Spent With Patient Time: Total time managing care of this patient today ____ minutes.
[2022-04-21 18:00] VITALS: BP 145/85; PULSE 95; TEMP 36.2; O2SAT 100
[2022-04-22 06:00] VITALS: BP 142/77; PULSE 76; RESP 14; TEMP 36.4; O2SAT 99
--- NOTE | 2022-04-22 11:38 | P.DS_ITS ---
DS: Providers Provider Date of Service: 04/22/22 Date of admission: 04/19/22 14:35 Date of discharge: 04/22/22 Primary care physician: Saray Verma MD Admitting clinician: Alfie Landin Attending physician on admission: Alfie Landin Attending physician on discharge: Franklin Kahn Discharging clinician: Priscilla Ritter DS: Diagnosis Discharge Diagnosis (1) Adjustment disorder with mixed anxiety and depressed mood: Status: Acute DS: Medications Discharge Medications Home Medications: Home Medications Medication Instructions Recorded Confirmed No Known Home Meds 04/18/22 04/18/22 Mental Status Exam Mental Status Exam Patient Appearance: Appropriate Patient Orientation: Person, Place, Time and Situation Level of Consciousness: Alert Patient Behavior: Appropriate, Talkative, Cooperative and Good Eye Contact Mood Description: Calm and Appropriate Affect Description: Calm and Appropriate Patient Cognition Impaired: No Ability to Follow Directions: Good Speech Pattern: Spontaneous Speech Memory Description: Intact Hallucinations: None Delusions: Not Present Thought Process: Intact and Goal Oriented Thought Content: positive for Intact and positive for Goal Oriented Judgement: Good Data Data Completed and Pending Completed studies during hospitalization [Text1]: 04/18/22 04/18/22 04/18/22 11:19 11:19 11:19 WBC RBC Hgb Hct MCV MCH MCHC RDW Plt Count MPV Immature Gran % (Auto) Neut % (Auto) Lymph % (Auto) [place] % (Auto) Eos % (Auto) Baso % (Auto) Lymph # (Auto) [place] # (Auto) Eos # (Auto) Baso # (Auto) Abs Immat Gran (auto) Absolute Neuts (auto) Absolute Nucleated RBC Nucleated RBC % (auto) Sodium Potassium Chloride Carbon Dioxide Anion Gap BUN Creatinine Estim Creat Clear Calc Estimated GFR Random Glucose Estimat Average Glucose Hemoglobin A1c % Calcium Total Bilirubin AST ALT Alkaline Phosphatase Ammonia C-Reactive Protein Total Protein Albumin Triglycerides Cholesterol LDL Cholesterol, Calc HDL Cholesterol TSH Urine Color Yellow Urine Appearance Clear Urine pH 6.5 Ur Specific [place] <= 1.005 Urine Protein Negative Urine Glucose (UA) Negative Urine Ketones Negative Urine Blood Small (1+) H Urine Nitrite Negative Ur Leukocyte Esterase Small (1+) H Urine RBC 0-2 Urine WBC 0-5 Ur Squamous Epith Cells 0-2 Urine Bacteria None Seen Hyaline Casts 0-2 Urine Opiates Screen Not Detected Urine Fentanyl Screen Not Detected Ur Barbiturates Screen Not Detected Ur Phencyclidine Scrn Not Detected Ur Amphetamines Screen Not Detected U Benzodiazepines Scrn Not Detected Urine Cocaine Screen Not Detected U Marijuana (THC) Screen Not Detected Ethyl Alcohol COVID-19 ([facility]) Negative COVID-19 Clin Com See Note 04/18/22 04/18/22 04/18/22 15:49 15:49 15:49 WBC 9.4 RBC 4.76 Hgb 13.4 Hct 38.7 MCV 81.3 MCH 28.2 MCHC 34.6 RDW 13.0 Plt Count 297 MPV 9.0 L Immature Gran % (Auto) 0.2 Neut % (Auto) 68.3 Lymph % (Auto) 23.5 [place] % (Auto) 5.2 Eos % (Auto) 1.8 Baso % (Auto) 1.0 Lymph # (Auto) 2.2 [place] # (Auto) 0.5 Eos # (Auto) 0.2 Baso # (Auto) 0.1 Abs Immat Gran (auto) 0.02 Absolute Neuts (auto) 6.4 Absolute Nucleated RBC 0.000 Nucleated RBC % (auto) 0.0 Sodium 143 Potassium 3.5 Chloride 108 Carbon Dioxide 25 Anion Gap 14 BUN 10 Creatinine 0.91 Estim Creat Clear Calc 60.2 Estimated GFR > 60 Random Glucose 130 H Estimat Average Glucose Hemoglobin A1c % Calcium 9.7 Total Bilirubin 0.3 AST 34 H ALT 30 Alkaline Phosphatase 101 Ammonia C-Reactive Protein 0.19 Total Protein 6.9 Albumin 4.3 Triglycerides Cholesterol LDL Cholesterol, Calc HDL Cholesterol TSH 0.97 Urine Color Urine Appearance Urine pH Ur Specific [place] Urine Protein Urine Glucose (UA) Urine Ketones Urine Blood Urine Nitrite Ur Leukocyte Esterase Urine RBC Urine WBC Ur Squamous Epith Cells Urine Bacteria Hyaline Casts Urine Opiates Screen Urine Fentanyl Screen Ur Barbiturates Screen Ur Phencyclidine Scrn Ur Amphetamines Screen U Benzodiazepines Scrn Urine Cocaine Screen U Marijuana (THC) Screen Ethyl Alcohol < 10 COVID-19 ([facility]) COVID-19 Clin Com 04/20/22 04/20/22 04/20/22 08:04 08:04 08:26 WBC RBC Hgb Hct MCV MCH MCHC RDW Plt Count MPV Immature Gran % (Auto) Neut % (Auto) Lymph % (Auto) [place] % (Auto) Eos % (Auto) Baso % (Auto) Lymph # (Auto) [place] # (Auto) Eos # (Auto) Baso # (Auto) Abs Immat Gran (auto) Absolute Neuts (auto) Absolute Nucleated RBC Nucleated RBC % (auto) Sodium Potassium Chloride Carbon Dioxide Anion Gap BUN Creatinine Estim Creat Clear Calc Estimated GFR Random Glucose Estimat Average Glucose 108 Hemoglobin A1c % 5.4 Calcium Total Bilirubin AST ALT Alkaline Phosphatase Ammonia 25 C-Reactive Protein Total Protein Albumin Triglycerides 43 Cholesterol 174 LDL Cholesterol, Calc 89 HDL Cholesterol 77 TSH Urine Color Urine Appearance Urine pH Ur Specific [place] Urine Protein Urine Glucose (UA) Urine Ketones Urine Blood Urine Nitrite Ur Leukocyte Esterase Urine RBC Urine WBC Ur Squamous Epith Cells Urine Bacteria Hyaline Casts Urine Opiates Screen Urine Fentanyl Screen Ur Barbiturates Screen Ur Phencyclidine Scrn Ur Amphetamines Screen U Benzodiazepines Scrn Urine Cocaine Screen U Marijuana (THC) Screen Ethyl Alcohol COVID-19 ([facility]) COVID-19 Clin Com 04/18/22 Unknown Urine clean catch - Urine rob[place] top Urine Culture - Final Imaging Diagnostic Imaging Impressions Head CT 04/18/22 17:56 IMPRESSION: 1. No acute intracranial abnormality. DS: Summary Hospital Course Hospital Course: Admission to adult psychiatry for exacerbation of symptoms related to a situational crisis. Pt was able to utilize the milieu and team for support and make a plan to pursue out patient care upon discharge. Pt chose to not pursue medication treatment during this admission. She reflected that she felt a lack of sleep with news of a new loss contributed to symptom presentation and reports she was able to get sleep while hospitalized. She is aware that she is welcome to return at any time, however, believes that out patient care is a more appropriate plan for her. Time spent discussing smoking cessation with patient: 3 to 10 minutes Status at Discharge Functional status at discharge: independent ambulation Overall status at discharge: patient is back to baseline Time Spent with Patient Time attestation: Total time managing care of this patient today 20 minutes. Time spent: Less than 30 minutes Discharge Plan Discharge Anticipated Discharge Date/Time: 04/22/22 14:31 Patient Disposition: Home, Self-Care Discharge Diagnosis: Adjustment Reaction, Mixed Referrals: [facility] [Other] PCP [Other] (Follow up with your PCP and discuss being started on a medication ) THERAPY [Other] - 1 Week (PATIENT REQUESTED TO ARRANGE THERAPY SERVICES FOR HERSELF) Saray Verma MD [Primary Care Provider] - 1 Week Discharge Medications: No Action No Known Home Meds Discharge Orders: Discharge Order (Routine); Ordered 04/22/22 Ordered By: Priscilla Ritter Diet: Advance to usual diet Activity on Discharge: As tolerated Stand Alone Forms: Patient Portal Discharge page, Community Support Care Plan Goals: Maintain mood and safe behaviors Practice coping skills You have indicated you will begin a search for a psychotherapist when discharged Health Concerns: Stable mood and behaviors Plan of Treatment: Begin search for out aptient psychotherapist Call/Return as needed Assessment: Pt interviewed prior to discharge and found to be fully oriented and without SI/HI. Pt has insight and demonstrates good judgment in terms of wanting to pursue treatment. Pt is not in imminent risk of harm to self or others and has a safety plan that includes presenting to the closest ER or calling 911 if feeling unsafe. Pt has been observed closely by the nursing staff throughout admission. Pt has not engaged in any behaviors that suggest dangerousness to self or others and had demonstrated appropriate behaviors and impulse control. Discharge Date/Time: 04/22/22 13:10
== END 2022-04-22 13:10 | disposition home or self-care (01) | DRG 882 ==
LOC: HO.ED 17:15 → HO.PM5 04-19 14:46
PROVIDERS: Physician Assistant; Admitting Provider Psychiatry & Neurology Psychiatry; Emergency Provider Student in an Organized Health Care Education/Training Program; PCP Internal Medicine; Visit Provider Clinical Nurse Specialist Psychiatric/Mental Health, Adult
DX: F43.23 Adjustment disorder with mixed anxiety and depressed mood (principal); F41.1 Generalized anxiety disorder; F32.A Depression, unspecified; Z20.822 Contact with and (suspected) exposure to COVID-19; Z88.8 Allergy status to other drugs, medicaments and biological substances
CPT/HCPCS: 36415; 70450; 80053; 80061; 80307; 81001; 82077; 82140; 83036; 84443; 85025; 86140; 87086; 87635; 93005; 99285; S9485